=== PATIENT | male | born 1950 | race African-American/Black ===

== ENCOUNTER 2016-05-31 19:49 | Emergency (ER) | payer MEDICARE, OTHER ==
[~2016-05-31] VITALS: Ht 185.4 cm; Wt 77.0 kg
[2016-05-31] MEDS ORDERED: SODIUM CHLORIDE 0.9% 1,000 ML IV ONE (21:46)
[2016-05-31] MEDS ORDERED: ONDANSETRON HCL 4MG/2ML VIAL IV STA (21:46)
[2016-05-31 22:29] LABS: CHLORIDE 101 mEq/L (98-107)
[2016-05-31 22:44] LABS: ALANINE AMINOTRANSFERASE 26 IU/L (13-61); ALBUMIN 3.1 g/dL (3.4-5.0); ANION GAP 14; CALCIUM 8.3 mg/dL (8.5-10.1); CARBON DIOXIDE 25 mEq/L (21-32); INDEX HEMOLYSI 4 (1-3); INDEX ICTERIC 1 (1-4); INDEX LIPEMIC 1 (1-3); LIPASE 63 IU/L (73-393); UREA NITROGEN BLOOD 8 mg/dL (7-21); eGFR > 60 mL/min (>60)
[2016-05-31 23:42] LABS: BASOPHILS % 0.5 % (0.0-2.0); EOSINOPHILS % 0.1 % (0.0-5.0); HEMATOCRIT. 42.5 % (42.0-52.0); HEMOGLOBIN. 13.7 g/dL (14.0-18.0); LYMPHOCYTES % 9.1 % (20.0-50.0); MEAN CORPUSCULAR HEMOGLOBIN 23.5 pg (28.0-32.0); MEAN CORPUSCULAR HGB CONC 32.3 g/dL (31.0-37.0); MEAN CORPUSCULAR VOLUME 72.9 fL (80.0-94.0); NEUTROPHILS % 84.3 % (40.0-76.0); RED BLOOD CELL COUNT 5.82 mill/uL (4.7-6.1); RED CELL DISTRIBUTION WIDTH 15.8 % (11.6-14.6)
[2016-05-31 23:43] LABS: DIFFERENTIAL COMMENT 1
[2016-06-01 00:03] VITALS: BP 169/90
== END 2016-06-01 00:45 | disposition home or self-care (01) ==
LOC: ER 20:00
DX: B34.9 Viral infection, unspecified (principal); E86.0 Dehydration; I10 Essential (primary) hypertension; F17.200 Nicotine dependence, unspecified, uncomplicated
CPT/HCPCS: 36415; 80053; 83690; 85025; 99284; J7030

== ENCOUNTER 2016-06-27 06:43 | Emergency (ER) | payer MEDICARE, OTHER ==
[~2016-06-27] VITALS: Ht 190.5 cm; Wt 75.0 kg
[2016-06-27 07:30] VITALS: BP 169/103
[2016-06-27] MEDS ORDERED: FAMOTIDINE 20MG/2ML VIAL IV STA (08:13)
[2016-06-27] MEDS ORDERED: SODIUM CHLORIDE 0.9% 500 ML IV ONE (08:13)
[2016-06-27] MEDS ORDERED: ONDANSETRON HCL 4MG/2ML VIAL IV STA (08:13)
== END 2016-06-27 08:53 | disposition left against medical advice (07) ==
LOC: ER 06:44
DX: R10.9 Unspecified abdominal pain (principal); R11.2 Nausea with vomiting, unspecified; I10 Essential (primary) hypertension
CPT/HCPCS: 99283; J7040; J2405; J3490

== ENCOUNTER 2016-12-05 07:01 | Emergency (ER) | payer MEDICARE, OTHER ==
[~2016-12-05] VITALS: Ht 188 cm; Wt 76.0 kg
[2016-12-05] MEDS ORDERED: IBUPROFEN 800MG TABLET PO ONE (09:00)
[2016-12-05] MEDS ORDERED: CLONIDINE 0.2MG TABLET PO ONE (09:00)
[2016-12-05 11:26] VITALS: BP 180/90
== END 2016-12-05 11:47 | disposition home or self-care (01) ==
LOC: ER 07:01
DX: M25.512 Pain in left shoulder (principal); S42.302D Unspecified fracture of shaft of humerus, left arm, subsequent encounter for fracture with routine healing; F17.200 Nicotine dependence, unspecified, uncomplicated; X58.XXXD Exposure to other specified factors, subsequent encounter
CPT/HCPCS: 99283

== ENCOUNTER 2018-02-25 07:29 | Inpatient (IN) | payer MEDICARE, OTHER ==
[~2018-02-25] VITALS: Ht 182.9 cm; Wt 60.3 kg
[~2018-02-25 07:29] MED LIST: NIFE10CA PO
[2018-02-25] MEDS ORDERED: SODIUM CHLORIDE 0.9% 1000ML BAG (SEPSIS BOLUS) IV ONE (08:15)
[2018-02-25 09:06] LABS: BASOPHILS % 0.5 % (0.0-2.0); HEMATOCRIT. 37.1 % (42.0-52.0); HEMOGLOBIN. 11.9 g/dL (14.0-18.0); LYMPHOCYTES % 8.4 % (20.0-50.0); MEAN CORPUSCULAR HEMOGLOBIN 23.2 pg (28.0-32.0); MEAN CORPUSCULAR VOLUME 72.2 fL (80.0-94.0); MEAN PLATELET VOLUME 7.9 fl (7.4-10.4); MONOCYTES % 3.9 % (2.0-8.0); NEUTROPHILS % 86.2 % (40.0-76.0); PLATELET 216 x1000/uL (130-400); RED BLOOD CELL COUNT 5.13 mill/uL (4.7-6.1); RED CELL DISTRIBUTION WIDTH 16.7 % (11.6-14.6)
[2018-02-25 09:12] LABS: CHLORIDE 103 mEq/L (98-107)
[2018-02-25 09:13] LABS: INR 1.3; PROTHROMBIN TIME 13.4 sec (9.1-11.1)
[2018-02-25 12:07] LABS: CLARITY URINE CLEAR (CLEAR); COLOR URINE YELLOW (YELLOW); KETONES URINE 1+ (NEGATIVE); LEUKOCYTE ESTERASE URINE NEGATIVE (NEGATIVE); NITRITE URINE NEGATIVE (NEGATIVE); OCCULT BLOOD URINE 3+ (NEGATIVE); PH URINE 7.5 (4.5-8.0); PROTEIN URINE NEGATIVE (NEGATIVE); SPECIFIC GRAVITY URINE 1.013 (1.005-1.030)
[2018-02-25 12:33] LABS: *AMPHETAMINES SCREEN URINE NEGATIVE (NEGATIVE); *BARBITURATES SCREEN URINE NEGATIVE (NEGATIVE); *BENZODIAZEPINES SCREEN URINE NEGATIVE (NEGATIVE); *COCAINE SCREEN URINE PRESUMTIVE POSITIVE (NEGATIVE)
[2018-02-25 12:34] LABS: CANNABINOID URINE SCREEN NEGATIVE (NEGATIVE); METHADONE URINE SCREEN PRESUMTIVE POSITIVE (NEGATIVE); OPIATES URINE SCREEN PRESUMTIVE POSITIVE (NEGATIVE); PHENCYCLIDINE URINE SCREEN NEGATIVE (NEGATIVE)
[2018-02-25 14:45] VITALS: BP 162/87
[2018-02-25 16:00] VITALS: BP 162/87
[2018-02-25] MEDS ORDERED: ACETAMINOPHEN 650MG/20.3ML UDC GT PRN (17:30)
[2018-02-25] MEDS ORDERED: DOCUSATE SODIUM 100MG CAPSULE PO PRN (17:30)
[2018-02-25] MEDS ORDERED: CLONIDINE 0.1MG TABLET PO PRN (17:30)
[2018-02-25] MEDS ORDERED: LORAZEPAM 2MG/ML CPJ IV PRN (17:30)
[2018-02-25] MEDS ORDERED: POTASSIUM CHLORIDE 20MEQ TABLET SR PO NR (19:45)
[2018-02-25 20:00] VITALS: BP 167/93
[2018-02-25] MEDS: ENOXAPARIN 40MG/0.4ML SYR SUBCUT SCH (20:32)
[2018-02-25 21:00] VITALS: BP 140/70
[2018-02-25] MEDS: NIFEDIPINE XL 30MG TAB PO SCH (23:30)
[2018-02-26] VITALS (7 sets, daily range): BP systolic 116–161; BP diastolic 60–86
[2018-02-26] MEDS: HYDRALAZINE HCL 25MG TABLET PO SCH ×3 (05:02→21:07)
[2018-02-26] MEDS: NIFEDIPINE XL 30MG TAB PO SCH (09:45)
[2018-02-26 09:56] LABS: HEMATOCRIT. 35.2 % (42.0-52.0); MEAN CORPUSCULAR HEMOGLOBIN 22.6 pg (28.0-32.0); MEAN CORPUSCULAR VOLUME 72.3 fL (80.0-94.0); MEAN PLATELET VOLUME 7.9 fl (7.4-10.4); PLATELET 196 x1000/uL (130-400); RED BLOOD CELL COUNT 4.87 mill/uL (4.7-6.1); RED CELL DISTRIBUTION WIDTH 16.4 % (11.6-14.6)
[2018-02-26 10:12] LABS: CHLORIDE 105 mEq/L (98-107)
[2018-02-26 10:21] LABS: PHOSPHORUS 2.5 mg/dL (2.5-4.9)
[2018-02-26 10:22] LABS: PLATELET ESTIMATE NORMAL
[2018-02-26 10:24] LABS: CREATINE KINASE 101 IU/L (39-308)
[2018-02-26 10:26] LABS: CREATINE KINASE MB FRACTION 1.2 ng/mL (0.5-3.6)
[2018-02-26] MEDS: LEVOFLOXACIN 500MG PREMIX 100 ML IV SCH (17:11)
[2018-02-26] MEDS: ENOXAPARIN 40MG/0.4ML SYR SUBCUT SCH (20:52)
[2018-02-27] VITALS: BP 140/52
[2018-02-27 04:00] VITALS: BP 90/68
[2018-02-27] MEDS: HYDRALAZINE HCL 25MG TABLET PO SCH ×3 (05:41→21:06)
[2018-02-27 08:00] VITALS: BP 115/71
[2018-02-27] MEDS: NIFEDIPINE XL 30MG TAB PO SCH (08:55)
[2018-02-27 12:46] VITALS: BP 112/68
[2018-02-27] MEDS: LEVOFLOXACIN 500MG PREMIX 100 ML IV SCH (15:32)
[2018-02-27 16:19] VITALS: BP 107/68
[2018-02-27 17:18] LABS: BASOPHILS % 0.6 % (0.0-2.0); EOSINOPHILS % 3.5 % (0.0-5.0); HEMATOCRIT. 35.5 % (42.0-52.0); HEMOGLOBIN. 11.5 g/dL (14.0-18.0); LYMPHOCYTES % 17.7 % (20.0-50.0); MEAN CORPUSCULAR HEMOGLOBIN 23.2 pg (28.0-32.0); MEAN CORPUSCULAR VOLUME 71.4 fL (80.0-94.0); MONOCYTES % 7.4 % (2.0-8.0); NEUTROPHILS % 70.8 % (40.0-76.0); RED BLOOD CELL COUNT 4.97 mill/uL (4.7-6.1); RED CELL DISTRIBUTION WIDTH 16.9 % (11.6-14.6)
[2018-02-27 17:31] LABS: CHLORIDE 107 mEq/L (98-107)
[2018-02-27 17:36] LABS: PHOSPHORUS 2.5 mg/dL (2.5-4.9)
[2018-02-27 18:31] LABS: MEAN PLATELET VOLUME 8.7 fl (7.4-10.4); PLATELET 151 x1000/uL (130-400); PLATELET ESTIMATE NORMAL
[2018-02-27 20:00] VITALS: BP 95/47
[2018-02-27] MEDS: ENOXAPARIN 40MG/0.4ML SYR SUBCUT SCH (20:44)
[2018-02-28] VITALS: BP 102/63
[2018-02-28 04:00] VITALS: BP 113/60
[2018-02-28] MEDS: HYDRALAZINE HCL 25MG TABLET PO SCH ×3 (05:50→21:28)
[2018-02-28 08:00] VITALS: BP 135/66
[2018-02-28] MEDS: NIFEDIPINE XL 30MG TAB PO SCH (09:51)
[2018-02-28] MEDS: ONDANSETRON HCL 4MG/2ML INJ IV PRN ×2 (11:04→17:51)
[2018-02-28] MEDS ORDERED: IPRATROPIUM/ALBUTEROL 0.5-3(2.5)MG/3ML NEB HHN PRN (11:15)
[2018-02-28] MEDS: MAGNESIUM HYDROXIDE 400MG/5ML 30ML UDC PO PRN (12:56)
[2018-02-28 13:00] VITALS: BP 156/87
[2018-02-28] MEDS: METHYLPREDNISOLONE SOD SUCC 125 MG/2 ML VIAL IV SCH ×2 (13:00→21:29)
[2018-02-28 16:00] VITALS: BP 146/80
[2018-02-28] MEDS: PANTOPRAZOLE SODIUM 40 MG/VIAL IV SCH (16:23)
[2018-02-28] MEDS: LEVOFLOXACIN 500MG PREMIX 100 ML IV SCH (16:24)
[2018-02-28 20:00] VITALS: BP 166/90
[2018-02-28] MEDS: ENOXAPARIN 40MG/0.4ML SYR SUBCUT SCH (20:33)
[2018-03-01] VITALS: BP 112/58
[2018-03-01 00:30] LABS: CREATINE KINASE 68 IU/L (39-308)
[2018-03-01 00:31] LABS: CREATINE KINASE MB FRACTION < 1.0 ng/mL (0.5-3.6)
[2018-03-01 04:00] VITALS: BP 124/74
[2018-03-01] MEDS: METHYLPREDNISOLONE SOD SUCC 125 MG/2 ML VIAL IV SCH ×2 (05:32→13:19)
[2018-03-01] MEDS: HYDRALAZINE HCL 25MG TABLET PO SCH ×2 (05:32→13:19)
[2018-03-01 08:00] VITALS: BP 146/82
[2018-03-01] MEDS: ONDANSETRON HCL 4MG/2ML INJ IV PRN (08:48)
[2018-03-01] MEDS: NIFEDIPINE XL 30MG TAB PO SCH (08:48)
[2018-03-01] MEDS: PANTOPRAZOLE SODIUM 40 MG/VIAL IV SCH (08:48)
[2018-03-01 10:59] LABS: CREATINE KINASE 41 IU/L (39-308)
[2018-03-01 11:00] LABS: CREATINE KINASE MB FRACTION < 1.0 ng/mL (0.5-3.6)
[2018-03-01] MEDS: MAGNESIUM HYDROXIDE 400MG/5ML 30ML UDC PO PRN (11:24)
[2018-03-01 12:00] VITALS: BP 159/91
[2018-03-01 14:01] VITALS: BP 150/86
== END 2018-03-01 15:40 | DRG 917 ==
LOC: ER 07:49 → EDBEDREQSVC 11:23 → EDBEDREQTM 12:48 → EDBEDREQSVC 12:48 → EDBEDREQ 12:48 → EDBEDREQSVC 13:30 → 5WST 13:36 → EDBEDREQTM 13:38 → ENRESERV 13:40 → 8WST 02-26 16:01
PROVIDERS: ADMIT Internal Medicine Nephrology; ATTEND Internal Medicine Nephrology
DX: T40.5X1A Poisoning by cocaine, accidental (unintentional), initial encounter (principal); G92 Toxic encephalopathy; T43.621A Poisoning by amphetamines, accidental (unintentional), initial encounter; I16.0 Hypertensive urgency; F14.90 Cocaine use, unspecified, uncomplicated; F15.90 Other stimulant use, unspecified, uncomplicated; E11.9 Type 2 diabetes mellitus without complications; I10 Essential (primary) hypertension; F11.10 Opioid abuse, uncomplicated; Z79.899 Other long term (current) drug therapy; Y92.89 Other specified places as the place of occurrence of the external cause
CPT/HCPCS: 36415; 51702; 71045; 80048; 80305; 82550; 82553; 82962; 83605; 83735; 84100; 84145; 84484; 93005; 94640; 96360; 97161; 99285; C9113; J1650; J1956; J2405; J2930; J7030; J7050; J7620; A4315

== ENCOUNTER 2018-04-27 07:47 | Emergency (ER) | payer MEDICARE, OTHER ==
[~2018-04-27] VITALS: Ht 190.5 cm; Wt 75.0 kg
[2018-04-27] MEDS ORDERED: HYDROCODONE/ACETAMINOPHEN 5/325MG TABLET PO ONE (09:15)
[2018-04-27 09:21] VITALS: BP 178/100
== END 2018-04-27 10:16 | disposition home or self-care (01) ==
LOC: ER 07:47
DX: M79.651 Pain in right thigh (principal); I10 Essential (primary) hypertension; W01.0XXA Fall on same level from slipping, tripping and stumbling without subsequent striking against object, initial encounter; Y93.89 Activity, other specified; Y92.009 Unspecified place in unspecified non-institutional (private) residence as the place of occurrence of the external cause; Y99.8 Other external cause status
CPT/HCPCS: 99283

== ENCOUNTER 2018-05-14 13:53 | Emergency (ER) | payer MEDICARE, OTHER ==
[~2018-05-14] VITALS: Ht 180.3 cm; Wt 77.0 kg
[2018-05-14 13:56] VITALS: BP 136/87
== END 2018-05-14 14:20 | disposition left against medical advice (07) ==
LOC: ER 14:20
DX: Z53.21 Procedure and treatment not carried out due to patient leaving prior to being seen by health care provider (principal)

== ENCOUNTER 2018-05-15 17:39 | Inpatient (IN) | payer MEDICARE, OTHER ==
[~2018-05-15] VITALS: Ht 170.2 cm; Wt 71.7 kg
[2018-05-15] MEDS ORDERED: FUROSEMIDE 40MG/4ML VIAL IV ONE (18:00)
[2018-05-15 18:13] LABS: BG BASE EXCESS 1.9 mmol/L (-2.0-2.0); BG BILEVEL POS AIRWAY PRESSURE 15/5; BG CARBOXYHEMOGLOBIN 0.8 % (0.5-1.5); BG DEOXYHEMOGLOBIN 2.2 % (0.0-5.0); BG FRACTION INSPIRED OXYGEN 40; BG HCO3 ACT 27.2 mmol/L (22.0-26.0); BG METHEMOGLOBIN 0.3 % (0.0-1.5); BG OXYGEN SATURATION 97.8 % (92.0-98.5); BG OXYHEMOGLOBIN 96.7 % (94.0-97.0); BG PCO2 45.8 mmHg (35.0-45.0); BG PH 7.391 (7.350-7.450); BG PO2 112.3 mmHg (75.0-100.0); BG SAMPLE SITE RIGHT BRACHIAL; BG TOTAL HEMOGLOBIN 9.6 g/dL (12.0-18.0); BG VENT MODE MASK - BIPAP; BG VENT RATE 16 set
[2018-05-15 18:18] LABS: HEMATOCRIT. 30.5 % (42.0-52.0); HEMOGLOBIN. 9.4 g/dL (14.0-18.0); MEAN CORPUSCULAR HEMOGLOBIN 22.9 pg (28.0-32.0); MEAN CORPUSCULAR VOLUME 74.1 fL (80.0-94.0); RED BLOOD CELL COUNT 4.12 mill/uL (4.7-6.1); RED CELL DISTRIBUTION WIDTH 16.1 % (11.6-14.6)
[2018-05-15 18:23] LABS: CHLORIDE 108 mEq/L (98-107)
[2018-05-15 18:27] LABS: ETHANOL BLOOD < 10 mg/dL; INR 1.5; PARTIAL THROMBOPLASTIN TIME 24.3 sec (23.4-31.0); PROTHROMBIN TIME 15.4 sec (9.1-11.1)
[2018-05-15 20:03] LABS: CLARITY URINE CLEAR (CLEAR); COLOR URINE YELLOW (YELLOW); KETONES URINE NEGATIVE (NEGATIVE); LEUKOCYTE ESTERASE URINE NEGATIVE (NEGATIVE); NITRITE URINE NEGATIVE (NEGATIVE); OCCULT BLOOD URINE NEGATIVE (NEGATIVE); PH URINE 5.5 (4.5-8.0); PROTEIN URINE NEGATIVE (NEGATIVE); SPECIFIC GRAVITY URINE 1.009 (1.005-1.030)
[2018-05-15 20:12] LABS: *AMPHETAMINES SCREEN URINE NEGATIVE (NEGATIVE); *BARBITURATES SCREEN URINE NEGATIVE (NEGATIVE); *BENZODIAZEPINES SCREEN URINE NEGATIVE (NEGATIVE); *COCAINE SCREEN URINE PRESUMTIVE POSITIVE (NEGATIVE); METHADONE URINE SCREEN NEGATIVE (NEGATIVE)
[2018-05-15 20:13] LABS: CANNABINOID URINE SCREEN NEGATIVE (NEGATIVE); OPIATES URINE SCREEN PRESUMTIVE POSITIVE (NEGATIVE); PHENCYCLIDINE URINE SCREEN NEGATIVE (NEGATIVE)
[2018-05-15 20:16] LABS: NUCLEATED RED BLOOD CELLS 1 /100 WBC
[2018-05-15 20:17] LABS: PLATELET ESTIMATE NORMAL
[2018-05-15] MEDS ORDERED: ONDANSETRON HCL 4MG/2ML INJ IV PRN (20:45)
[2018-05-15] MEDS ORDERED: DOCUSATE SODIUM 100MG CAPSULE PO PRN (20:45)
[2018-05-15] MEDS ORDERED: ACETAMINOPHEN 325MG TABLET PO PRN (20:45)
[2018-05-15] MEDS ORDERED: NITROGLYCERIN 0.4MG TABLET SL SL PRN (20:45)
[2018-05-15] MEDS ORDERED: MAGNESIUM/ALUMINUM HYDROXIDE/SIMETHICONE 30ML UDC PO PRN (20:45)
[2018-05-15] MEDS ORDERED: IPRATROPIUM/ALBUTEROL 0.5-3(2.5)MG/3ML NEB INH PRN (20:45)
[2018-05-15] MEDS ORDERED: CLONIDINE 0.1MG TABLET PO PRN (20:45)
[2018-05-15] MEDS: FAMOTIDINE 20MG TABLET PO SCH (21:00)
[2018-05-15] MEDS: LISINOPRIL 20MG TABLET PO SCH (21:56)
[2018-05-15] MEDS ORDERED: LEVOFLOXACIN 500MG PREMIX 100 ML IV SCH (22:00)
[2018-05-15 22:44] LABS: CREATINE KINASE 242 IU/L (39-308)
[2018-05-15 22:45] LABS: CREATINE KINASE MB FRACTION 1.5 ng/mL (0.5-3.6)
[2018-05-16] MEDS: IPRATROPIUM/ALBUTEROL 0.5-3(2.5)MG/3ML NEB HHN SCH (04:50)
[2018-05-16 07:04] LABS: CREATINE KINASE 218 IU/L (39-308)
[2018-05-16 07:05] LABS: CREATINE KINASE MB FRACTION 1.4 ng/mL (0.5-3.6)
[2018-05-16] MEDS: KETOROLAC 15MG/ML VIAL IV PRN ×2 (11:23→20:18)
[2018-05-16 15:16] VITALS: BP 127/77
[2018-05-16 16:00] VITALS: BP 138/85
[2018-05-16] MEDS: METHYLPREDNISOLONE SOD SUCC 125 MG/2 ML VIAL IV SCH ×2 (16:53→22:10)
[2018-05-16 18:00] VITALS: BP 143/80
[2018-05-16 20:00] VITALS: BP 128/70
[2018-05-16] MEDS: ASCORBIC ACID 500 MG TABLET PO SCH (20:14)
[2018-05-16] MEDS: GUAIFENESIN/DM 600MG/30MG ER TAB 12HR PO SCH (20:14)
[2018-05-16] MEDS: LISINOPRIL 20MG TABLET PO SCH (21:00)
[2018-05-16] MEDS: FAMOTIDINE 20MG TABLET PO SCH (21:00)
[2018-05-16] MEDS: FUROSEMIDE 20MG/2ML VIAL IVP SCH (21:00)
[2018-05-16] MEDS: SPIRONOLACTONE 25MG TABLET PO SCH (21:00)
[2018-05-16 22:00] VITALS: BP 130/75
[2018-05-16] MEDS: LEVOFLOXACIN 500MG PREMIX 100 ML IV SCH (22:21)
[2018-05-17] VITALS (11 sets, daily range): BP systolic 125–169; BP diastolic 74–93
[2018-05-17] MEDS: IPRATROPIUM/ALBUTEROL 0.5-3(2.5)MG/3ML NEB HHN SCH ×6 (00:39→21:01)
[2018-05-17] MEDS: GUAIFENESIN 200MG/10ML SUGAR FREE UDC PO PRN ×3 (02:12→21:49)
[2018-05-17] MEDS: KETOROLAC 15MG/ML VIAL IV PRN ×2 (02:19→15:34)
[2018-05-17] MEDS: METHYLPREDNISOLONE SOD SUCC 125 MG/2 ML VIAL IV SCH ×3 (05:50→21:49)
[2018-05-17] MEDS: ASPIRIN 325MG EC TABLET PO SCH ×2 (09:00→09:05)
[2018-05-17] MEDS: GUAIFENESIN/DM 600MG/30MG ER TAB 12HR PO SCH ×2 (09:04→21:50)
[2018-05-17] MEDS: SPIRONOLACTONE 25MG TABLET PO SCH ×2 (09:05→21:53)
[2018-05-17] MEDS: ASCORBIC ACID 500 MG TABLET PO SCH ×2 (09:05→21:49)
[2018-05-17] MEDS: FAMOTIDINE 20MG TABLET PO SCH ×2 (09:06→21:50)
[2018-05-17] MEDS: LISINOPRIL 20MG TABLET PO SCH ×2 (09:06→21:50)
[2018-05-17] MEDS: FUROSEMIDE 20MG/2ML VIAL IVP SCH ×2 (09:06→21:49)
[2018-05-17] MEDS ORDERED: ENOXAPARIN 40MG/0.4ML SYR SUBCUT SCH (15:00)
[2018-05-17] MEDS: LEVOFLOXACIN 500MG PREMIX 100 ML IV SCH (21:50)
[2018-05-17] MEDS: ZOLPIDEM TARTRATE 5MG TABLET PO PRN (23:32)
[2018-05-18] MEDS: IPRATROPIUM/ALBUTEROL 0.5-3(2.5)MG/3ML NEB HHN SCH ×4 (00:12→12:31)
[2018-05-18] MEDS: KETOROLAC 15MG/ML VIAL IV PRN (03:44)
[2018-05-18 04:00] VITALS: BP 157/98
[2018-05-18] MEDS: ZOLPIDEM TARTRATE 5MG TABLET PO PRN (05:31)
[2018-05-18] MEDS: METHYLPREDNISOLONE SOD SUCC 125 MG/2 ML VIAL IV SCH (05:31)
[2018-05-18 05:58] VITALS: BP 149/97
[2018-05-18 08:00] VITALS: BP 149/78
[2018-05-18] MEDS: GUAIFENESIN/DM 600MG/30MG ER TAB 12HR PO SCH (09:57)
[2018-05-18] MEDS: LISINOPRIL 20MG TABLET PO SCH (09:57)
[2018-05-18] MEDS: ASPIRIN 325MG EC TABLET PO SCH (09:58)
[2018-05-18] MEDS: FUROSEMIDE 20MG/2ML VIAL IVP SCH (09:58)
[2018-05-18] MEDS: FAMOTIDINE 20MG TABLET PO SCH (09:58)
[2018-05-18] MEDS: ASCORBIC ACID 500 MG TABLET PO SCH (09:58)
[2018-05-18] MEDS: SPIRONOLACTONE 25MG TABLET PO SCH (09:58)
[2018-05-18 10:00] VITALS: BP 153/94
[2018-05-18 11:33] VITALS: BP 149/78
== END 2018-05-18 12:30 | disposition home or self-care (01) | DRG 91 ==
LOC: ER 17:39 → 5EST 19:33 → EDBEDREQ 19:39 → EDBEDREQTM 19:39 → SUPCPDRO 20:29 → ENRESERV 05-16 14:06
PROVIDERS: ADMIT Internal Medicine; ATTEND Internal Medicine
PROC: 5A09357 Assistance with Respiratory Ventilation, Less than 24 Consecutive Hours, Continuous Positive Airway Pressure (ICD-10-PCS; principal; 2018-05-15)
DX: G92 Toxic encephalopathy (principal); J96.01 Acute respiratory failure with hypoxia; I50.33 Acute on chronic diastolic (congestive) heart failure; E44.1 Mild protein-calorie malnutrition; J44.1 Chronic obstructive pulmonary disease with (acute) exacerbation; I11.0 Hypertensive heart disease with heart failure; F14.10 Cocaine abuse, uncomplicated; D63.8 Anemia in other chronic diseases classified elsewhere; E83.51 Hypocalcemia; Z71.51 Drug abuse counseling and surveillance of drug abuser; Z68.24 Body mass index [BMI] 24.0-24.9, adult; Z79.899 Other long term (current) drug therapy
CPT/HCPCS: 36415; 36600; 71045; 80061; 80305; 80320; 82375; 82550; 82553; 82805; 83036; 83880; 84484; 87804; 93005; 93306; 93970; 94640; 94660; 96365; 96366; 96375; 97162; 97165; 99291; J1650; J1885; J1940; J1956; J2930; J7050; J7620; G0480

== ENCOUNTER 2018-05-25 23:21 | Inpatient (IN) | payer MEDICARE, OTHER ==
[~2018-05-25] VITALS: Ht 172.7 cm; Wt 67.6 kg
[2018-05-26] MEDS ORDERED: IPRATROPIUM BROMIDE (0.02%) 0.5MG/2.5ML NEB HHN STA (00:34)
[2018-05-26] MEDS ORDERED: METHYLPREDNISOLONE SOD SUCC 125 MG/2 ML VIAL IV STA (00:34)
[2018-05-26] MEDS: ALBUTEROL (0.083%) 2.5MG/3ML NEB HHN SCH ×2 (01:05→02:16)
[2018-05-26 01:12] LABS: HEMATOCRIT. 33.1 % (42.0-52.0); HEMOGLOBIN. 10.5 g/dL (14.0-18.0); MEAN CORPUSCULAR HEMOGLOBIN 22.7 pg (28.0-32.0); MEAN CORPUSCULAR VOLUME 71.5 fL (80.0-94.0); MEAN PLATELET VOLUME 7.4 fl (7.4-10.4); PLATELET 409 x1000/uL (130-400); RED BLOOD CELL COUNT 4.62 mill/uL (4.7-6.1); RED CELL DISTRIBUTION WIDTH 15.7 % (11.6-14.6)
[2018-05-26 01:18] LABS: CHLORIDE 104 mEq/L (98-107)
[2018-05-26 01:38] LABS: BG CARBOXYHEMOGLOBIN 0.4 % (0.5-1.5); BG DEOXYHEMOGLOBIN 2.2 % (0.0-5.0); BG FRACTION INSPIRED OXYGEN 40; BG HCO3 ACT 29.8 mmol/L (22.0-26.0); BG METHEMOGLOBIN 0.1 % (0.0-1.5); BG OXYGEN SATURATION 97.8 % (92.0-98.5); BG OXYHEMOGLOBIN 97.3 % (94.0-97.0); BG PCO2 44.9 mmHg (35.0-45.0); BG PO2 108.5 mmHg (75.0-100.0); BG SAMPLE SITE RIGHT BRACHIAL; BG TOTAL HEMOGLOBIN 10.9 g/dL (12.0-18.0); BG VENT MODE ON TX
[2018-05-26 02:23] LABS: PLATELET ESTIMATE NORMAL
[2018-05-26] MEDS ORDERED: IPRATROPIUM/ALBUTEROL 0.5-3(2.5)MG/3ML NEB INH PRN (06:30)
[2018-05-26] MEDS ORDERED: GUAIFENESIN 200MG/10ML SUGAR FREE UDC PO PRN (06:30)
[2018-05-26] MEDS ORDERED: TEMAZEPAM 15MG CAPSULE PO PRN (06:30)
[2018-05-26] MEDS ORDERED: ONDANSETRON HCL 4MG/2ML INJ IV PRN (06:30)
[2018-05-26] MEDS ORDERED: LORAZEPAM 0.5MG TABLET PO PRN (06:30)
[2018-05-26] MEDS ORDERED: KETOROLAC 30MG/ML VIAL IV PRN (06:30)
[2018-05-26] MEDS ORDERED: DIPHENHYDRAMINE 50MG/ML VIAL IV PRN (06:30)
[2018-05-26] MEDS ORDERED: MAGNESIUM HYDROXIDE 400MG/5ML 30ML UDC PO PRN (06:30)
[2018-05-26] MEDS ORDERED: ACETAMINOPHEN 325MG TABLET PO PRN (06:30)
[2018-05-26] MEDS ORDERED: MAGNESIUM/ALUMINUM HYDROXIDE/SIMETHICONE 30ML UDC PO PRN (06:30)
[2018-05-26] MEDS: CLONIDINE 0.2MG TABLET PO PRN ×2 (09:28→15:34)
[2018-05-26] MEDS ORDERED: HYDRALAZINE 20MG/ML VIAL IV PRN ×2 (09:30→10:13)
[2018-05-26 09:45] VITALS: BP 173/88
[2018-05-26] MEDS ORDERED: SPIRONOLACTONE 25MG TABLET PO SCH (11:00)
[2018-05-26] MEDS ORDERED: LISINOPRIL 20MG TABLET PO SCH (11:00)
[2018-05-26 11:20] VITALS: BP 123/69
[2018-05-26] MEDS: ASPIRIN 325MG EC TABLET PO SCH (11:27)
[2018-05-26] MEDS: FAMOTIDINE 20MG TABLET PO SCH ×2 (11:27→21:04)
[2018-05-26] MEDS: ENOXAPARIN 40MG/0.4ML SYR SUBCUT SCH (11:27)
[2018-05-26] MEDS: SODIUM CHLORIDE 0.9% INJ 3ML FLUSH IVF SCH ×2 (14:39→21:05)
[2018-05-26] MEDS: METHYLPREDNISOLONE SOD SUCC 125 MG/2 ML VIAL IV SCH ×2 (14:39→21:04)
[2018-05-26 15:31] VITALS: BP 166/86
[2018-05-26 20:00] VITALS: BP 149/72
[2018-05-26] MEDS: GUAIFENESIN 600MG ER TABLET PO SCH (21:04)
[2018-05-27] VITALS: BP 156/77
[2018-05-27] MEDS: IPRATROPIUM/ALBUTEROL 0.5-3(2.5)MG/3ML NEB HHN SCH ×2 (03:46→08:48)
[2018-05-27 04:00] VITALS: BP 149/79
[2018-05-27] MEDS: METHYLPREDNISOLONE SOD SUCC 125 MG/2 ML VIAL IV SCH (06:01)
[2018-05-27 08:00] VITALS: BP 147/80
[2018-05-27] MEDS: ENOXAPARIN 40MG/0.4ML SYR SUBCUT SCH (08:58)
[2018-05-27] MEDS: FAMOTIDINE 20MG TABLET PO SCH (08:58)
[2018-05-27] MEDS: ASPIRIN 325MG EC TABLET PO SCH (08:58)
[2018-05-27] MEDS: GUAIFENESIN 600MG ER TABLET PO SCH (08:59)
[2018-05-27] MEDS ORDERED: NIFEDIPINE XL 60MG TAB PO SCH (09:00)
[2018-05-27] MEDS ORDERED: LORATADINE 10MG TABLET PO SCH (10:00)
[2018-05-27] MEDS ORDERED: BENZONATATE 100MG CAPSULE PO PRN (10:00)
[2018-05-27 11:39] VITALS: BP 147/80
[2018-05-27] MEDS ORDERED: IPRATROPIUM/ALBUTEROL 0.5-3(2.5)MG/3ML NEB HHN SCH (12:00)
[2018-05-27 12:03] LABS: CLARITY URINE CLEAR (CLEAR); COLOR URINE YELLOW (YELLOW); KETONES URINE NEGATIVE (NEGATIVE); LEUKOCYTE ESTERASE URINE NEGATIVE (NEGATIVE); NITRITE URINE NEGATIVE (NEGATIVE); OCCULT BLOOD URINE NEGATIVE (NEGATIVE); PH URINE 7.5 (4.5-8.0); PROTEIN URINE NEGATIVE (NEGATIVE)
[2018-05-27 12:43] LABS: *AMPHETAMINES SCREEN URINE NEGATIVE (NEGATIVE); *BARBITURATES SCREEN URINE NEGATIVE (NEGATIVE); *BENZODIAZEPINES SCREEN URINE NEGATIVE (NEGATIVE); CANNABINOID URINE SCREEN NEGATIVE (NEGATIVE); OPIATES URINE SCREEN PRESUMTIVE POSITIVE (NEGATIVE)
[2018-05-27 12:51] LABS: PHENCYCLIDINE URINE SCREEN NEGATIVE (NEGATIVE)
[2018-05-27 12:52] LABS: METHADONE URINE SCREEN NEGATIVE (NEGATIVE)
[2018-05-27 12:53] LABS: *COCAINE SCREEN URINE NEGATIVE (NEGATIVE)
[2018-05-27] MEDS ORDERED: MONTELUKAST SODIUM 10MG TABLET PO SCH (17:00)
[2018-05-27] MEDS ORDERED: FLUTICASONE PROPIONATE 50MCG/SPRAY BOTTLE BOTHNSTRLS SCH (21:00)
== END 2018-05-27 15:35 | disposition home or self-care (01) | DRG 193 ==
LOC: ER 23:34 → 8WST 05-26 03:53 → EDBEDREQTM 05-26 03:59 → EDBEDREQ 05-26 03:59 → ENRESERV 05-26 07:17
PROVIDERS: ADMIT Internal Medicine; ATTEND Internal Medicine
DX: J18.9 Pneumonia, unspecified organism (principal); J96.00 Acute respiratory failure, unspecified whether with hypoxia or hypercapnia; J44.0 Chronic obstructive pulmonary disease with (acute) lower respiratory infection; J44.1 Chronic obstructive pulmonary disease with (acute) exacerbation; J06.9 Acute upper respiratory infection, unspecified; I11.0 Hypertensive heart disease with heart failure; I50.9 Heart failure, unspecified; Z87.891 Personal history of nicotine dependence; Z59.0 Homelessness; Z79.899 Other long term (current) drug therapy
CPT/HCPCS: 36415; 36600; 71045; 80305; 82375; 82805; 83605; 83880; 84484; 93005; 94640; 94644; 97161; 99285; J1650; J1885; J2930; J7611; J7620